=== PATIENT | female | born 1985 | race Caucasian/White ===

== ENCOUNTER 2018-01-20 11:24 | Emergency (ER) | payer SELFPAY ==
[~2018-01-20] VITALS: Ht 160 cm; Wt 68.2 kg
[2018-01-20 11:58] VITALS: BP 121/69
== END 2018-01-20 14:12 | disposition left against medical advice (07) ==
LOC: EMS 11:27
DX: Z53.21 Procedure and treatment not carried out due to patient leaving prior to being seen by health care provider (principal)